=== PATIENT | female | born 1995 | race Two or more races ===

== ENCOUNTER 2016-11-25 11:53 | Emergency (ER) | payer MEDICAID, OTHER ==
[2016-11-25] MEDS ORDERED: CEPHALEXIN 250 MG CAPSULE PO STA (12:28)
[2016-11-25] MEDS ORDERED: CEPHALEXIN 250 MG CAPSULE PO ONE (12:33)
[2016-11-25] MEDS ORDERED: HYDROcod/ACETAM 5/325 MG TABLET PO STA (12:33)
[2016-11-25] MEDS ORDERED: HYDROcod/ACETAM 5/325 MG TABLET ONE (12:34)
== END 2016-11-25 12:43 | disposition home or self-care (01) ==
DX: H66.91 Otitis media, unspecified, right ear (principal)
CPT/HCPCS: 99283; A9270

== ENCOUNTER 2017-01-20 08:00 | Outpatient (CLI) | payer MEDICAID | END 2017-01-20 08:01 | disposition home or self-care (01) | LOC: LAB.R 08:00 | PROVIDERS: ATTEND Nurse Practitioner Obstetrics & Gynecology | DX: Z36 Encounter for antenatal screening of mother (principal) | CPT/HCPCS: 80306 ==

== ENCOUNTER 2017-01-20 10:20 | Outpatient (CLI) | payer MEDICAID ==
[2017-01-20 10:53] LABS: BASOPHILS # (AUTO) 0.1 10^3/uL (0.0-0.1); BASOPHILS % (AUTO) 0.6 %; EOSINOPHILS # (AUTO) 0.3 10^3/uL (0.0-0.7); EOSINOPHILS % (AUTO) 2.9 %; HCT - HEMATOCRIT 37.3 % (37.0-47.0); HGB - HEMOGLOBIN 12.6 g/dL (12.0-16.0); LYMPHOCYTES # (AUTO) 1.7 10^3/uL (1.5-3.5); LYMPHOCYTES % (AUTO) 14.6 %; MEAN CORPUSCULAR HEMOGLOBIN 28.5 pg (27.0-31.0); MEAN CORPUSCULAR HGB CONC 33.7 g/dL (32.0-36.0); MEAN CORPUSCULAR VOLUME 84.6 fL (81.0-99.0); MEAN PLATELET VOLUME 8.2 fL (7.9-10.8); MONOCYTES # (AUTO) 0.5 10^3/uL (0.0-1.0); MONOCYTES % (AUTO) 4.5 %; NEUTROPHILS # (AUTO) 8.8 10^3/uL (1.5-6.6); NEUTROPHILS % (AUTO) 77.4 %; RED BLOOD COUNT 4.41 10^6/uL (4.20-5.40); RED CELL DISTRIBUTION WIDTH 13.3 % (12.0-15.0); UNCORRECTED WHITE BLOOD COUNT 11.4 x10^3/uL; WHITE BLOOD COUNT 11.4 x10^3/uL (4.8-10.8)
[2017-01-20 11:53] LABS: BILIRUBIN,URINE NEGATIVE (NEGATIVE)
[2017-01-24 16:23] LABS: TREPONEMA AB IGG NEGATIVE (())
== END 2017-01-20 10:21 | disposition home or self-care (01) ==
LOC: LAB 10:20
PROVIDERS: ATTEND Nurse Practitioner Obstetrics & Gynecology
DX: Z36 Encounter for antenatal screening of mother (principal)
CPT/HCPCS: 36415; 80306; 81001; 85025; 86762; 86780; 86850; 86900; 86901; 87340; 87389

== ENCOUNTER 2017-03-13 08:03 | Outpatient (CLI) | payer MEDICAID ==
--- NOTE | 2017-03-13 13:32 | Ultrasound Report ---
OB ULTRASOUND: 03/13/2017 CLINICAL INDICATION: anatomy. TECHNIQUE: Real-time scanning was performed with associate financial representative static images obtained. LAST MENSTRUAL PERIOD --- Clinical Age --- US Age 20 weeks 0 days EFW Hadlock 330 g EFW% Hadlock --- Heart Rate 148 bpm EDC --- US EDC 07/31/2017 BPD Hadlock 19 weeks 5 days; Mean mm 45.2 HC [place]lock 20 weeks 1 day; Mean mm 176.7 AC [place]lock 20 weeks 1 day; Mean mm 148.0 FL [place]lock 20 weeks 0 days; Mean mm 32.3 Presentation variable Placental Location anterior Cervical Length 5.1 cm Amniotic Fluid 14.1 cm FINDINGS: There is a single viable intrauterine gestation, in variable position. heart rate is 148 BPM. The placenta is anterior, with what appears to be a low wrap, currently producing complete previa. This should be followed up in the third trimester. By size, the fetus measures 20.0 weeks ( uncertain LMP). The following anatomic structures were visualized and appear normal: The intracranial contents, including the ventricles and posterior fossa; the lips and orbits; the spine; the heart, including 4 chamber view and outflow tracts, and diaphragm; the abdominal contents, including the stomach, the bilateral kidneys, and urinary bladder, as well as a normal 3 vessel cord insertion; 4 limbs. No free fluid or adnexal lesion is appreciated. IMPRESSION: SINGLE VIABLE INTRAUTERINE GESTATION, MEASURING 20 WEEKS BY SIZE. ANTERIOR PLACENTA, WITH AN ANTERIOR TO INFERIOR WRAP, PRODUCING COMPLETE PREVIA. THIS SHOULD BE REEVALUATED IN THE THIRD TRIMESTER. NORMAL ANATOMIC SURVEY. [facility], [place]
== END 2017-03-13 08:04 | disposition home or self-care (01) ==
LOC: DI 08:03
PROVIDERS: ATTEND Nurse Practitioner Obstetrics & Gynecology
DX: Z36 Encounter for antenatal screening of mother (principal); O44.02 Complete placenta previa NOS or without hemorrhage, second trimester; Z3A.20 20 weeks gestation of pregnancy
CPT/HCPCS: 76811

== ENCOUNTER 2018-01-09 17:15 | Emergency (ER) | payer MEDICAID ==
[2018-01-09 17:53] VITALS: BP 123/82
--- NOTE | 2018-01-09 18:06 | ED Physician Documentation ---
History of Present Illness - Stated complaint Stated Complaint: EAR PX/ CANT TASTE OR SMELL - Additonal information Additional information: hx from pt 22 f denies preg to ER with 2 weeks of sinus congestion, terry ear pain, cough, nasal congestion cant smell or taste normally tried dayquil s success Review of Systems Constitutional: denies: Fever Ears: reports: Ear pain Nose: reports: Congestion, Sinus pressure / pain Respiratory: reports: Cough GI: denies: Vomiting, Diarrhea : denies: Now EGA (denies) Endocrine: denies: Easy bruising / bleeding Immunocompromised: denies: Immunocompromised PD PAST MEDICAL HISTORY - Past Medical History Past Medical History: Yes Cardiovascular: None Respiratory: None Endocrine/Autoimmune: None : Kidney stones, Other Psych: Depression - Past Surgical History Past Surgical History: Yes Ortho: Arthroscopic surgery /[employer]: Tubal ligation - Present Medications Home Medications: Ambulatory Orders Medication Instructions Recorded Confirmed HYDROcod/ACETAM 5/325 [Marion 5/325] 1 - 2 ea PO Q6H PRN #15 tablet 11/25/16 cephALEXin [Cephalexin] 500 mg PO TID #20 tablet 11/25/16 Azithromycin [Zithromax] 250 mg PO DAILY #6 tablet 01/09/18 Fluticasone [Flonase] 2 sprays BEL DAILY PRN #1 bottle 01/09/18 Pseudoephedrine [Sudafed] 30 mg PO Q6H PRN #20 tablet 01/09/18 - Allergies Allergies/Adverse Reactions: Allergies Allergy/AdvReac Type Severity Reaction Status Date / Time amoxicillin trihydrate * Allergy Unknown Cramps Verified 11/25/16 12:11 [From Augmentin] potassium clavulanate * Allergy Unknown Cramps Verified 11/25/16 12:11 [From Augmentin] - Social History Does the pt smoke?: No Smoking Status: Never smoker Does the pt drink ETOH?: No Does the pt have substance abuse?: Yes - Immunizations Immunizations are current?: Yes - POLST Patient has POLST: No PD ED PE NORMAL - Vitals Vital signs reviewed: Yes - General General: Alert and oriented X 3 - HEENT HEENT: PERRL, Other (terry frontal and R maxillary sinus TTP ). No: Ears normal ( R TM dull red and bulging, L red and retracted), Pharynx benign (PNS and cobblestoning) - Cardiac Cardiac: RRR - Respiratory Respiratory: No respiratory distress, Clear bilaterally - Derm Derm: Normal color - Neuro Neuro: Alert and oriented X 3 Results - Vitals Vitals: Vital Signs - 24 hr 01/09/18 17:49 Temperature 36.6 C Heart Rate 76 Respiratory 16 Rate Blood Pressure 123/82 H O2 Saturation 94 Oxygen O2 Source Room air Departure - Departure Disposition: Home, Self Care Clinical Impression: Otitis media Qualifiers: Otitis media type: suppurative Chronicity: acute Laterality: right Recurrence: not specified as recurrent Spontaneous tympanic membrane rupture: without spontaneous rupture Qualified Code(s): H66.001 - Acute suppurative otitis media without spontaneous rupture of ear drum, right ear Sinusitis Qualifiers: Sinusitis location: unspecified location Chronicity: subacute Qualified Code(s) : J01.90 - Acute sinusitis, unspecified Condition: Good Instructions: ED Otitis Media Acute Adult, ED Sinusitis Abx Tx Prescriptions: Azithromycin [Zithromax] 250 mg PO DAILY #6 tablet Fluticasone [Flonase] 2 sprays BEL DAILY PRN #1 bottle PRN Reason: congestion Pseudoephedrine [Sudafed] 30 mg PO Q6H PRN #20 tablet PRN Reason: congestion Comments: Most sinus infections are viral or allergic in etiology. But you also have an ear infection on exam so I have prescribed antibiotics For the sinus and nasal congestion use the flonase and sudafed as prescribed and consider trying a sinus irrigation system
== END 2018-01-09 18:24 | disposition home or self-care (01) ==
LOC: ED 17:15
DX: H66.001 Acute suppurative otitis media without spontaneous rupture of ear drum, right ear (principal); J01.90 Acute sinusitis, unspecified
CPT/HCPCS: 99283